=== PATIENT | male | born 1955 | race Caucasian/White ===

== ENCOUNTER 2021-10-17 16:20 | Inpatient (IN) | payer OTHER ==
[~2021-10-17] VITALS: Ht 175.3 cm; Wt 84.5 kg
[2021-10-17 17:07] LABS: BASOPHILS ABSOLUTE AUTO 0.09 K/mm3 (0.00-0.23); BASOPHILS PERCENT AUTO 1 % (0-2); EOSINOPHILS ABSOLUTE AUTO 0.08 K/mm3 (0.00-0.68); EOSINOPHILS PERCENT AUTO 1 % (0-6); Hemoglobin 20.2 g/dL (13.5-17.5); IMMATURE GRAN ABSOLUTE AUTO 0.05 K/mm3 (0.00-0.10); IMMATURE GRAN PERCENT AUTO 1 % (0-1); LYMPHOCYTES ABSOLUTE AUTO 0.67 K/mm3 (0.84-5.20); LYMPHOCYTES PERCENT AUTO 7 % (21-46); MONOCYTES ABSOLUTE AUTO 1.25 K/mm3 (0.16-1.47); MONOCYTES PERCENT AUTO 12 % (4-13); Mean Corpuscular HGB 36.4 pg (26.0-34.0); Mean Corpuscular HGB Conc 33.6 g/dL (31.5-36.5); Mean Corpuscular Volume 109 fL (80-100); NEUTROPHILS ABSOLUTE AUTO 8.04 K/mm3 (1.96-9.15); NEUTROPHILS PERCENT AUTO 79 % (41-73); Platelet Count 304 K/mm3 (150-400); RDW Standard Deviation 53.2 fL (35.1-46.3); Red Blood Cell Count 5.55 M/mm3 (4.30-5.90); White Blood Cell Count 10.18 K/mm3 (4.00-11.30)
[2021-10-17 17:12] LABS: Hematocrit 60.2 % (37.0-53.0)
[2021-10-17 17:29] LABS: Albumin/Globulin Ratio 0.5 (0.8-1.8); Bilirubin, Total 2.1 mg/dL (0.1-1.0); Bun/Creatinine Ratio 67.5 (12.0-20.0); Calcium, Blood 11.1 mg/dL (8.5-10.1); Creatinine, Blood 0.99 mg/dL (0.60-1.20); Globulin, Blood 5.6 g/dL (2.2-4.0); Potassium, Blood 3.5 mmol/L (3.5-5.5); Total Protein, Blood 8.6 g/dL (6.4-8.2)
[2021-10-17 17:49] LABS: Creatine Kinase MB 9.5 ng/mL (0.0-3.6)
--- NOTE | 2021-10-17 22:58 | NUR ---
ADMISSION PT TO ROOM FROM ED. ALERT. MUMBLES ANSWERS AT TIMES / YES, NO, HOSPITAL, ETC. OFTEN LOOKS FRUSTRATED THAT HE CAN'T SPEAK ALL THAT HE WANTS TO. PRESENTS UNDERSTANDING MOST, IF NOT ALL, OF WHAT THIS RN SAYS. FOLLOWING COMMANDS. R SIDED FLACCIDITY. L SIDE INTACT. PT GIVEN BED BATH. LARGE SACRAL BRUISING/ PRESSUREINJURY NOTED. PICTURES PLACED. CLEANED. ONLY ABOUT A 3MM, SPOT OPENED SO FAR BUT IT PRESENTS IF IT MAY OPEN EVENTUALLY. MEPILEX TO AREA. LARGE SIMILAR WOUND TO MID UPPER R BACK, NON OPENED. CLEANSED, FOAM PAD PLACED. LARGE PURULENT SMELLING OPEN WOUND TO L ARMPIT PRESENT. CLEANSED WITH SKINTEGRITY. DRYED. MEPITEL PLACED THEN SUPERABSORBENT PAD PLACED. 1/2NS INFUSING AT 100ML/HR. EXPLAINED TO PATIENT SITUATION. NODS IN UNDERSTANDING. PT RESTING NOW. ATTEMPTING TO FILL IN HEALTH HX VIA [employer]AP[employer]WORK.
[2021-10-17 23:38] LABS: Source, Urine Straight Cath
[2021-10-17 23:40] LABS: Blood, Urine 1+ (Neg); Glucose Qualitative, Urine Neg (Neg); Ketones, Urine 3+ (Neg); Leukocyte Esterase, Urine 1+ (Neg); Nitrite, Urine Neg (Neg); Protein, Urine 2+ (Neg); Specific Gravity, Urine 1.015 (1.003-1.022); Urobilinogen, Urine 4+ (Normal)
[2021-10-17 23:50] LABS: Appearance, Urine Hazy (Clear); Bilirubin, Urine 2+ (Neg); Color, Urine Amber (P-Yellow)
[2021-10-17 23:51] LABS: Amorphous Mod (0-Heavy); Bacteria Rare /hpf; Hyaline Casts 50-100 /lpf (0-2); Red Blood Cells, Urine Rare /hpf (0-2); Squamous Epithelial Cells Not Seen /hpf (Few); White Blood Cells, Urine 0-2 /hpf (0-5)
[2021-10-18 04:09] LABS: BASOPHILS ABSOLUTE AUTO 0.03 K/mm3 (0.00-0.23); BASOPHILS PERCENT AUTO 0 % (0-2); EOSINOPHILS ABSOLUTE AUTO 0.08 K/mm3 (0.00-0.68); EOSINOPHILS PERCENT AUTO 1 % (0-6); Hemoglobin 18.8 g/dL (13.5-17.5); IMMATURE GRAN ABSOLUTE AUTO 0.03 K/mm3 (0.00-0.10); IMMATURE GRAN PERCENT AUTO 0 % (0-1); LYMPHOCYTES ABSOLUTE AUTO 0.67 K/mm3 (0.84-5.20); LYMPHOCYTES PERCENT AUTO 7 % (21-46); MONOCYTES ABSOLUTE AUTO 1.32 K/mm3 (0.16-1.47); MONOCYTES PERCENT AUTO 14 % (4-13); Mean Corpuscular HGB 36.2 pg (26.0-34.0); Mean Corpuscular HGB Conc 33.5 g/dL (31.5-36.5); Mean Corpuscular Volume 108 fL (80-100); Mean Platelet Volume 10.2 fL (9.1-12.4); NEUTROPHILS ABSOLUTE AUTO 7.03 K/mm3 (1.96-9.15); NEUTROPHILS PERCENT AUTO 77 % (41-73); Platelet Count 280 K/mm3 (150-400); RDW Coefficient Variation 13.2 % (11.7-14.2); RDW Standard Deviation 53.3 fL (35.1-46.3); White Blood Cell Count 9.16 K/mm3 (4.00-11.30)
[2021-10-18 04:14] LABS: Hematocrit 56.1 % (37.0-53.0)
[2021-10-18 04:32] LABS: Albumin, Blood 2.6 g/dL (3.4-5.0); Albumin/Globulin Ratio 0.5 (0.8-1.8); Bilirubin, Total 2.2 mg/dL (0.1-1.0); Bun/Creatinine Ratio 64.4 (12.0-20.0); Calcium, Blood 10.3 mg/dL (8.5-10.1); Creatinine, Blood 1.18 mg/dL (0.60-1.20); Globulin, Blood 4.8 g/dL (2.2-4.0); Potassium, Blood 3.7 mmol/L (3.5-5.5); Total Protein, Blood 7.4 g/dL (6.4-8.2)
[2021-10-18] MEDS ORDERED: ALLO300 PO (05:16)
[2021-10-18] MEDS ORDERED: THERA-D2000 UNIT PO (05:17)
[2021-10-18] MEDS ORDERED: CENTRUM SILVER1 EAC2 PO (05:17)
--- NOTE | 2021-10-18 05:30 | NUR ---
SHIFT SUMMARY SEE ADMIT NOTE. POST ADMIT, NO NEURO CHANGES NOTED. PT STILL ABLE TO COMMUNICATE SOME WITH STAFF. R SIDE FLACCIDITY REMAINS. COMPREHENSIVE ORAL CARE PROVIDED, SOME PLAQUE STILL REMAINS. WOUNDS CDI AND DRESSED. R HEEL NOTED TO HAVE A REDDENED AREA. MEPILEX HEEL PROTECTORS PLACED BILATERALLY PROPHYLACTICALLY. 1/2 NS RATE CHANGED FROM 100MLS/HR TO 150MLS/HR. CURTIS PLACED, OLIGURIC <300M OUTPUT. PT NOTED TO HAVE HYPOTHERMIC TEMPORAL TEMPERATURES, PT'S SKIN COOL, AND PATIENT SHIVERING. RECTAL CONTINUAL TEMP CORD PLACED. PT NOW SOMEWHAT FEBRILE. TOOK BLANKET OFF AND TURNED ROOM TEMP DOWN, PER MAINTENANCE, ROOM TEMP WAS AROUND 78 UPON ADMIT. TEMP HAS RECEEDED A LITTLE BUT STILL >100F. BEYOND THIS. PT RESTING COMFORTABLY PER HIS REMARKS. PT TURNED BY STAFF. BED ALARM IN PLACE.
--- NOTE | 2021-10-18 09:45 | NUR ---
CARE ASSUMPTION THIS RN ASSUMED CARE FROM YAN TROTTER AT 0700. VSS. PATIENT NEURO IS INTACT. PATIENT IS ORIENTED AND ALERT X4. PATIENT ABLE TO MUBMLE ANSWERS, YES/NO, AND ADDITIONAL WORDS, BUT SOME THIS RN IS UNABLE TO MAKE OUT. PATIENT APPEARS TO UNDERSTAND PLAN OF CARE AND HIS WHEREABOUTS. PATIENT HAS RIGHT ARM PAIN WTIH MOVEMENT, RESTING ON A PILLOW CURRENTLY. REPOSITIONING EVERY TWO HOURS. PATIENT REPORTS NO CHEST PAIN/PRESSURE. PATIENT RIGHT ARM AND LEG ARE FLACID. PATIENT STATES HE CAN FEEL SENSATION TO HIS RIGHT ARM AND LEG. PATIENT LEFT SIDE IS WEAK. NYSTAGMUS IN THE RIGHT EYE. BUT BOTH EYES CAN TRACK. CRUSTY EYES AND THIS RN PROVIDED EYE CARE THIS AM. DRY ORAL MEMERBRANES, ORAL CARE DONE AND MOUTH MOSITUREIZE APPLIED. SEE SHIFT ASSESSMENT FOR FULL DETAILS. PATIENT HAS CURTIS DRAINING WITH GRAVITY DARK COLORATION. CALL LIGHT WITHIN REACH. WILL CONTINUE TO MONITOR AND PROVIDE CARE.
--- NOTE | 2021-10-18 10:52 | NUR ---
Spoke with Primary RN Clarita prior to Pt visit and discussed case. Pt appears to some what alert and orientated. Pt remains NPO at this time. ST evaluation may be beneficial. Pt resting in bed upon arrival. Pt appears to be experiencing some expressive and receptive aphasia. Asked simple yes and no questions with simple instruction to look around the room and at this RN to assist with answering questions. Pt struggles with question "Is there a television in the room", and initialy says no. After some coaching and continued instructions Pt is able to answer question appropriately. Pt tends to need contined coaching and instructions with each question but is able to answer other questions appropriately. Pt denies pain and dyspnea at this time. Pt appears comfortable with no S/S of distress. Pt nods his head up and down indicating yes with question for this RN to contact his sister who is listed as NOK. Ended visit to allow Pt to rest. Attempted to contact sister Madonna X2 with line appearing to have a busy signal. Will continue to attempt to make contact. [facility]. Spoke with Dr Ashley and discussed case. Palliative Care will remain available.
[2021-10-18 12:34] LABS: CPK Creatine Kinase 302 U/L (39-308); Cholesterol 174 mg/dL (50-200); HDL Cholesterol 44 mg/dL (>39); LDL/HDL RATIO 2.1; Low Density Lipoprotein Chol 91 mg/dL (0-110); Triglycerides 197 mg/dL (30-160); Very Low Density Lipoprot Chol 39 mg/dL (6-32)
--- NOTE | 2021-10-18 13:57 | NUR ---
RESPIRATORY STATUS PATIENT SPO2 WAS 71%. THIS RN INCREASED O2 TO 15L NC AND RESPIRAOTY WAS CALLED. ESTELA RN SUCTIONED THE PATIENT AND SPO2 CAME UP TO 85-86%. RESPIRATORY INTO ROOM WITH HIGH FLOW AND DEEP SUCTION SUPPLES. RESPIRAOTY THERAPY PERFORMED DEEP SUCTION AND LARGE AMOUNTS OF COPIOUS SPUTUM THICK CLEAR CAME UP. THIS IMRPOVED PATIENT SPO2 STATUS AND IS SITTING AT 96% ON 10L HIGH FLOW NC. PATIENT HAS NO GAG REFLUX. SPEECH IS IN WITH THE PATIENT CURRENTLY. WILL CONTINUE TO MONITOR AND PROVIDE CARE,
[2021-10-18 16:34] LABS: PCO2 Arterial 31.7 mmHg (35-45); pH Blood Arterial 7.41 (7.35-7.45)
--- NOTE | 2021-10-18 17:07 | NUR ---
INTUBATION 1642 - 200 mcg phenylephrine. BiPAP 16/8, 100% FiO2. SpO2 94%. HR 121, sinus tach 1644 - BP 102/71 (81) 1645 - BP 112/83 (93). 4 mg versed. 40 mg propofol. 1646 - BP 101/73. 8.0 cm ETT placed 26 cm at teeth. 1647 - 60 mg propofol, 200 mcg phenylephrine 1648 - 78/48 (56). 200 mcg phenylephrine 1649 - 56/38 (46) 400 mcg phenylephrine 1654 - 49/37 (43) Saline bolus in pressure bag 1656 - 400 mcg phenylephrine 1700 - levophed 10 mcg/min.
--- NOTE | 2021-10-18 17:24 | NUR ---
Pt transfered to ICU. Pt experiencing hypotension and respiratory distress. Pt intubated in ICU. With the assistance of VIDEO EDITOR Caremanjameel Collins, Pt's sister Madonna's phone number obtained. Called and spoke with sister Madonna and provided update on Pt's condition and plan of care. Discussed Pt's code status wishes with sister Madonna reporting Pt would be ok with short term intubation but would not want CPR. Listened as Madonna reports Pt has a total of 5 siblings one of which is incarcerated. Offered therapeutic listening and answered questions. Madonna states "My brother is a proud person and would not want to live if he is going to be a parapeligic for the rest of his life". Continued therapeutic listening. Dr Dee reports he will call sister and provide update when he can and discuss Pt's condition further. Sister Madonna express appreciation and reports no other concerns at this time. Spoke with Dr Ashley and discussed case. [facility] indicating [facility] not [facility]/POLST on file. Palliative Care will remain available for supportive and therapeutic visits.
--- NOTE | 2021-10-18 17:33 | NUR ---
TRANSFER TO ICU PATIENT WAS DESATTING WITH SPO2 AT 86%. PATIENT WAS DUSKY IN APPERANCE AND MENTATION DECREASED. THIS RN INCREASE PATIENT PXYGEN TO 15L VIA THE HIGH FLOW NC. PATIENT WAS STILL REMAINING AT 86-87% AND THIS RN PLACED THE NONRREBREATH MASK ON AT 15L. PATIENT SPOR INCREASED TO 90%. RES[IRATOY THERAPY MADE AWARE AND CALLED TO COME DEEP SUCTION THE PATIENT TO SEE IF THAT WILL IMPROVE THE PATIENTS RESPIRATORY STATUS. RESPIRATORY TO SUCTION AND PATIENT RESPIRATORY STATUS DID NOT IMRPOVE. SPO2 SITTING AT 76-77%. PATIENT PLACED ON AIRVO MAXED OUT AND SPO2 WAS SITTING AT 80%. PATIENT PLACED WITH NONREBREATHER MASK ON WELL AND STILL SITTING IN THE 80%. IT WAS THEN DECIDED TO SWITH THE PATIENT TO THE [facility], SEE RESPIRATORY SETTINGS, PATIENT IMPROVED TO 85% 02. PATIENT BLOOD PRESURE WAS SOFT SYSTOLIC 80-70S AND DIASTOLIC 50S, SEE VITAL SIGNS FOR MORE INFORMATION. STEAM CLOTHES PRESS OPERATOR ESTELA IN THE ROOM AND NOTIFED REFERRAL SPECIALIST. MD NOTIFED OF PATIENT CHANGE IN STATUS. REFERRAL SPECIALIST TO THE ROOM TO EVULATE PATIENT AND DISCUSSED INTUBATION AND PATIENT SAID YES AND NODDED HEAD. ICU STEAM CLOTHES PRESS OPERATOR OVER AND THE DECISION TO MOVE THE PATIENT TO ICU TO GET INTUBATED WAS MADE. RESPIRATORY CARE, STEAM CLOTHES PRESS OPERATOR FROM PCU, STEAM CLOTHES PRESS OPERATOR FROM ICU, AND THIS RN TRANSFERED PATIENT OVER TO ICU. BESIDE REPORT GIVEN.
--- NOTE | 2021-10-18 18:43 | NUR ---
ASSUMED CARE OF PT AT 1715. DR. BARDALES PLACED SUBCLAVIAN CENTRAL LINE AND WAS CONFIRMED WITH XRAY. PT WAS SHIVERING AND REACHING FOR ETT AT ONE POINT. INCREASED SEDATION. PT RECEIVED 2.5L BOLUS AND LEVOPHED STARTED. LEVOPHED QUICKLY INCREASED TO 20MCG/MIN. VASOPRESSIN STARTED WELL. BLOOD CULTURES DRAWN THEN IV ABX STARTED. DR. BARDALES SPOKE WITH SISTER SIVA ON THE PHONE. DUSTY WHO HELPS CARE FOR PT CAME IN TO SEE PT. STAFF MADE AWARE PT IS A HEAVY ETOH USER. PT APPEARS MORE COMFORTABLE ON THE VENT NOW. WILL REPORT TO ONCOMING RN.
--- NOTE | 2021-10-18 19:13 | NUR ---
VERSED GIVEN FOR POSSIBLE SEIZURES. PT R ARM IS TREMULOUS IN RHYTHMIC MOTION. KEPPRA ALSO ORDERED.
[2021-10-18 20:33] LABS: PCO2 Arterial 32.2 mmHg (35-45); PO2 Arterial 105 mmHg (80-100); pH Blood Arterial 7.32 (7.35-7.45)
[2021-10-19 04:57] LABS: Hematocrit 42.7 % (37.0-53.0); Hemoglobin 14.3 g/dL (13.5-17.5); Mean Corpuscular HGB 36.5 pg (26.0-34.0); Mean Corpuscular HGB Conc 33.5 g/dL (31.5-36.5); Mean Corpuscular Volume 109 fL (80-100); Mean Platelet Volume 10.4 fL (9.1-12.4); Platelet Count 193 K/mm3 (150-400); RDW Standard Deviation 52.3 fL (35.1-46.3); Red Blood Cell Count 3.92 M/mm3 (4.30-5.90); White Blood Cell Count 5.05 K/mm3 (4.00-11.30)
[2021-10-19 05:15] LABS: Albumin, Blood 2.9 g/dL (3.4-5.0); Anion Gap 12 mmol/L (6-16); Blood Urea Nitrogen 68 mg/dL (8-24); Bun/Creatinine Ratio 47.2 (12.0-20.0); CO2, Blood 20 mmol/L (21-32); Calcium, Blood 8.5 mg/dL (8.5-10.1); Chloride, Blood 117 mmol/L (98-108); Creatinine, Blood 1.44 mg/dL (0.60-1.20); Glomerular Filtration Rate 54 (60-); Glucose, Blood 205 mg/dL (70-99); Phosphorus, Blood 2.6 mg/dL (2.5-4.9); Potassium, Blood 2.8 mmol/L (3.5-5.5); Sodium, Blood 149 mmol/L (136-145)
[2021-10-19 05:34] LABS: BAND PERCENT MAN 70 % (0-8); BASOPHILS PERCENT MAN 0 % (0-2); EOSINOPHILS PERCENT MAN 0 % (0-6); LYMPHOCYTES ABSOLUTE MAN 0.05 K/mm3 (0.84-5.20); LYMPHOCYTES PERCENT MAN 1 % (21-46); METAMYELOCYTE ABSOLUTE MAN 0.15 K/mm3 (0.00-0.00); METAMYELOCYTE PERCENT MAN 3 % (0-0); MONOCYTES ABSOLUTE MAN 0.05 K/mm3 (0.16-1.47); MONOCYTES PERCENT MAN 1 % (4-13); MYELOCYTE ABSOLUTE MAN 0.05 K/mm3 (0.00-0.00); MYELOCYTE PERCENT MAN 1 % (0-0); NEUTROPHILS ABSOLUTE MAN 4.74 K/mm3 (1.96-9.15); SEG NEUTROPHILS PERCENT MAN 24 % (41-73); TOTAL CELLS COUNTED 100
--- NOTE | 2021-10-19 06:21 | NUR ---
SHIFT SUMMARY PATIENT HAD RESPONSE TO PAINFUL STIMULI, NO TREMORS OR OTHER SEIZURE ACTIVITY DURING SHIFT. NO EYE OPENING OR SPONTANEOUS MOVEMENTS. NORMOTHERMIC T/O SHIFT. PATIENT REMAINED INTUBATED AND SEDATED ON PROPOFOL @ 45MCG/KG/MIN. VENT SETTINGS PC 24 FIO2 100%. SPO2 MAINTAINED HIGH 90'S-100% T/O SHIFT. RHYTHM REMAINED SINUS WITH RATE 60'S-70'S. BP STABLE WITH MAPS 70'S-90'S WITH LEVOPHED INF @ 15 MCG/MIN AND VASOPRESSIN @ 0.04 MCG/MIN; EPI ON SB MOST OF SHIFT. NS 200ML/HR INF TO RT SUBCLAVIAN CL. RT WRIST AND LT FA PIV'S SALINE LOCKED. LUNG SOUNDS REMAINED COARSE TO CLEAR T/O NIGHT DEPENDENT ON LAYING POSITION. BT REMAINED HYPOACTIVE-NO BM. CURTIS HAD 250 ML OUT WITH LARGE AMOUNTS OF SEDIMENT IN URINE. MOTTLING IS IMPROVING ON SKIN. SISTER SIVA CALLED FOR UPDATE THIS MORNING-UPDATE GIVEN.
--- NOTE | 2021-10-19 08:00 | NUR ---
PT REMAINS INTUBATED AND MECHANICALLY VENTILATED. PT GIVEN SEDATION VACATION X 20 MINUTES. DURING THAT TIME, HE RESPONDED TO NOXIOUS STIMULI/ORAL CARE BY MOVING HIS LEFT ARM (GROSS) TOWARDS ETT. PT IS UNABLE TO FOLLOW COMMANDS. NO NOTED MOVEMENT OF LEFT LOWER EXTREMITY OR RIGHT UPPER AND LOWER EXTREMITY. NO SPONTANEOUS EYE OPENING. NO COUGH OR GAG REFLEX. PROPOFOL RESUMED @ 45 MCG/KG/MIN PT STACKING BREATHS ON VENTILATOR. ECG SHOWS SR WITH RATE4 70'S. TITRATING LEVOPHED DRIP TO KEEP MAP 60-65. CURRENTLY, EPI DRIP IS ON STANDBY. VASOPRESSIN CONTINUES @ 0.04 UNITS/MIN. DP/PT PULSES FAINT. NO NOTED EDEMA. LUNGS COARSE THROUGH OUT. VENT PC24, RR 20, BUT PT BREATHING 22-28, PEEP 14, FIO2 80%-SATS>95% ETT SUCTION PRODUCTIVE OF MODERATE AMOUNT OF THICK, TSE SECRETIONS. OGT CLAMPED. ABDOMEN IS OBESE, BUT SOFT. HYPO ACTIVE BT'S X 4. CURTIS TO BSD WITH SMALL AMOUNT OF YELLOW/ORANGE URINE WITH SEDIMENT. LEFT AXILLA WITH RASH NOTED. RIGHT UPPER MID BACK APPEARANCE SLIGHTLY IMPROVED FROM PHOTO-FOAM DRESSING REMOVED TO ASSESS, THEN REPLACED. COCCYX/BUTTOCKS APPEAR LESS EXCORIATED THAT PHOTO. STAGE 2 ULCER IN THE GLUTEAL FOLD IS UNCHANGED FROM PHOTO-FOAM DRESSING REMOVED FOR ASSESSMENT, THEN REPLACED. HEELS FLOATED AND PT WILL REMAINS OFF OF HIS BACK. WILL TURN EVERY 2 HOURS AND PRN.
--- NOTE | 2021-10-19 09:00 | NUR ---
MAP TRENDING 80'S-LEVOPHED TITRATED DOWN TO 10 MCG/MIN. SPUTUM SPECIMEN SENT-MODERATE AMOUNT OF THICK, YELLOW SECRETIONS.
--- NOTE | 2021-10-19 09:35 | NUR ---
DR. BARDALES IN TO SEE PT. FULL UPDATE GIVEN.
--- NOTE | 2021-10-19 11:00 | NUR ---
PT MADE COMFORT CARE. RESTRAINTS REMOVED. DRIPS DISCONTINUED-PT EXTUBATED TO R/A. MED WITH ATROPINE DROPS DOWN THE ETT PRIOR TO EXTUBATION. ALSO, MED WITH ATIVAN 1 MG IVP X 1 FOR ANXIETY/AIR HUNGER AND MORPHINE 5 MG IVP X 1 FOR PAIN/AIR HUNGER. PT FRIENDS AND ALLERGIST/PEDIATRIC PULMONOLOGIST AT THE BEDSIDE AND PT SISTER ON FACETIME.
--- NOTE | 2021-10-19 12:33 | NUR ---
Multiple visits this AM. Spoke with Dr Dee and discussed case. Family may benefit from discussion regarding goals of care. Spoke with Pt's sister Madonna, provided update and prognosis. Engaged in therapeutic conversation regarding goals of care. Madonna reports Pt would not want to continue with treatment if he was unable to make a full recovery. She reports having a conversation with the rest of Pt's sibling and all agree that Pt would want comfort measures only. Madonna reports Pt is someone who leaned heavily on quality of life vs longevity of life. Educated on comfort care philosophy with V/U made by sister. Family elects comfort care. Madonna request that Pt's friends Jonelle Mc and Pt's business account specialist be present at the time care is withdrawn. Friends and Optical Laboratory Technician have arrived and Pt placed on comfort care. Friends and family have elected [facility] when Pt passes. Offered supportive visit. Pt currently appears comfortable. Palliative Care will remain available.
== END 2021-10-19 15:19 | DRG 64 ==
LOC: ER 16:20 → EDBD 16:20 → PCU 18:14 → ICUE 18:14 → PCU 20:45 → ICUE 10-18 16:35
PROVIDERS: Internal Medicine; Internal Medicine Critical Care Medicine; Physician Assistant; ADMIT Internal Medicine
PROC: 3E03329 Introduction of Other Anti-infective into Peripheral Vein, Percutaneous Approach (ICD-10-PCS; 2021-10-17)
PROC: 0BH18EZ Insertion of Endotracheal Airway into Trachea, Via Natural or Artificial Opening Endoscopic (ICD-10-PCS; principal; 2021-10-18)
PROC: 3E033XZ Introduction of Vasopressor into Peripheral Vein, Percutaneous Approach (ICD-10-PCS; 2021-10-18)
PROC: 5A1935Z Respiratory Ventilation, Less than 24 Consecutive Hours (ICD-10-PCS; 2021-10-18)
DX: I63.512 Cerebral infarction due to unspecified occlusion or stenosis of left middle cerebral artery (principal); J69.0 Pneumonitis due to inhalation of food and vomit; J18.9 Pneumonia, unspecified organism; J96.01 Acute respiratory failure with hypoxia; G93.5 Compression of brain; I21.A1 Myocardial infarction type 2; G81.91 Hemiplegia, unspecified affecting right dominant side; E87.0 Hyperosmolality and hypernatremia; M62.82 Rhabdomyolysis; N17.9 Acute kidney failure, unspecified; Z66 Do not resuscitate; Z78.1 Physical restraint status; Z51.5 Encounter for palliative care; F10.20 Alcohol dependence, uncomplicated; E78.00 Pure hypercholesterolemia, unspecified; R47.81 Slurred speech; L21.9 Seborrheic dermatitis, unspecified; N40.0 Benign prostatic hyperplasia without lower urinary tract symptoms; B95.62 Methicillin resistant Staphylococcus aureus infection as the cause of diseases classified elsewhere; E83.52 Hypercalcemia; E86.0 Dehydration; R74.01 Elevation of levels of liver transaminase levels; E87.6 Hypokalemia; R56.9 Unspecified convulsions; F17.210 Nicotine dependence, cigarettes, uncomplicated; Z87.01 Personal history of pneumonia (recurrent); Z79.899 Other long term (current) drug therapy
CPT/HCPCS: 31500; 31720; 36415; 36556; 36600; 70450; 71045; 80053; 80061; 80069; 81001; 82550; 82553; 82803; 83036; 83605; 83735; 84484; 85025; 87070; 87077; 87086; 87186; 87205; 92610; 93005; 93010; 93306; 93880; 94002; 94660; 94760; 94762; 96360; 97162; 97166; 99285-25; A9270; C1751; C9113; J0171; J1650; J1953; J2060; J2250; J2270; J2370; J2543; J2704; J3370; J3411; J3480; J7030; J7040; J7060; P9046